=== PATIENT | female | born 1960 | race Caucasian/White ===

== ENCOUNTER 2024-04-15 08:55 | Inpatient (IN) | payer MEDICAID ==
[2024-04-15] MEDS: Sodium Chloride 0.9% 10 ML Syringe FLUSH PRN (09:30)
[2024-04-15 09:59] LABS: HEMATOCRIT 31.7 % (34.2-48.2); HEMOGLOBIN 9.9 g/dL (11.4-15.5); MEAN CORPUSCULAR HEMOGLOBIN 26.7 pg (23.9-33.9); MEAN CORPUSCULAR HGB CONC 31.3 g/dL (31.9-34.8); MEAN CORPUSCULAR VOLUME 85.2 fL (76.7-100.5); MEAN PLATELET VOLUME 8.9 fL (7.1-12.4); PLATELET COUNT,PLT 214 x10(3)uL (151-488); RED BLOOD CELL COUNT 3.72 x10(6)uL (3.60-5.20); RED CELL DISTRIBUTION WIDTH 15.1 % (12.3-16.5); WHITE BLOOD CELL COUNT,WBC 10.5 x10-3/uL (3.0-10.3)
[2024-04-15 10:01] LABS: BLOOD UREA NITROGEN,BUN 8 mg/dL (7-18); BUN/CREATININE RATIO 8.9 (9-20); CALCIUM 9.3 mg/dL (8.6-10.2); CARBON DIOXIDE,CO2 30 mmol/L (21-32); CHLORIDE,CL 104 mmol/L (100-110); CREATININE 0.9 mg/dL (0.55-1.02); ESTIMATED GFR 72 mL/min (>60); GLUCOSE RANDOM 160 mg/dL (80-116); SODIUM,NA 143 mmol/L (135-145)
[2024-04-15 10:04] LABS: BASE EXCESS VENOUS,POC -1 mmol/L (-2 - 3+); PCO2 VENOUS,POC 45 mmHg (41-51); PH VENOUS,POC 7.36 pH Units (7.32-7.43)
[2024-04-15 10:07] LABS: A/G RATIO 0.8; ALANINE AMINOTRANSFERASE,ALT 17 U/L (12-36); ALKALINE PHOSPHATASE 110 IU/L (56-112); ASPARTATE AMNIOTRANSFERASE,AST 13 IU/L (5-25); BILIRUBIN TOTAL 0.2 mg/dL (0.1-1.3); MAGNESIUM 1.9 mg/dL (1.8-2.5); PROTEIN TOTAL,TP 6.7 g/dL (6.0-8.0)
[2024-04-15 10:14] LABS: TROPONIN I 56.2 pg/mL (4.0-60.3)
[2024-04-15 10:18] LABS: C-REACTIVE PROTEIN < 0.50 mg/dL (<0.50); PRO B-TYPE NATRIUR PEPT,BNPPRO 1361 pg/mL (<=125)
[2024-04-15 10:30] LABS: EOSINOPHILS PERCENT MAN 3 % (0-5); LYMPHOCYTES PERCENT MAN 11 % (13-37); MONOCYTES PERCENT MAN 3 % (4-12); SEG NEUTROPHILS PERCENT MAN 83 % (46-82)
[2024-04-15] MEDS: Albuterol/Ipratropium 3.0-0.5 MG/3 ML Neb Soln NEB ONE (10:36)
[2024-04-15] MEDS: Sodium Chloride 0.9% 500 ML IV ONE ×3 (10:44→19:48)
[2024-04-15] MEDS: Iopamidol 755 Mg/ML 100 ML Bottle IV SCH (12:34)
[2024-04-15 13:01] LABS: BILIRUBIN,URINE NEGATIVE (NEGATIVE); GLUCOSE,URINE 50 mg/dL (NORMAL); KETONES,URINE NEGATIVE (NEGATIVE); LEUKOCYTE ESTERASE,URINE NEGATIVE (NEGATIVE); NITRITE,URINE NEGATIVE (NEGATIVE); OCCULT BLOOD,URINE NEGATIVE (NEGATIVE); PROTEIN,URINE 100 mg/dL (NEGATIVE); UROBILINOGEN,URINE NORMAL (NEGATIVE)
[2024-04-15 13:07] LABS: APPEARANCE,URINE CLEAR (CLEAR); BACTERIA,URINE MODERATE (NS); COLOR,URINE YELLOW (YELLOW); SQUAMOUS EPITHELIAL CELLS,UR FEW (NS,R,O); WBC,URINE 0-5 (0-5)
[2024-04-15] MEDS ORDERED: Acetaminophen 650 MG Supp RECTAL PRN (17:18)
[2024-04-15] MEDS ORDERED: Albuterol 6.7 GM Inhaler INH PRN (17:26)
[2024-04-15] MEDS: Albuterol/Ipratropium 3.0-0.5 MG/3 ML Neb Soln NEB SCH (18:10)
[2024-04-15] MEDS: cefTRIAXone 1 GM Vial IVPUSH SCH (18:25)
[2024-04-15] MEDS: Azithromycin 500 MG in Sodium Chloride 0.9% 250 ML IV SCH (18:31)
[2024-04-15 18:39] LABS: LACTIC ACID 2.8 mmol/L (0.4-2.0)
[2024-04-15] MEDS: Apixaban 5 MG Tab PO SCH (20:29)
[2024-04-15] MEDS: Pramipexole 0.25 MG Tab PO SCH (20:29)
[2024-04-15] MEDS: Furosemide 20 MG/2 ML VIAL IVPUSH SCH (20:31)
[2024-04-15] MEDS: methylPREDNISolone Sodium Succinate 40 MG/1 ML SDV IVPUSH SCH (20:38)
[2024-04-15] MEDS: traZODone 50 MG Tab PO PRN (21:45)
[2024-04-16] MEDS: Pantoprazole 40 MG Tab.CR PO SCH (06:42)
[2024-04-16 06:52] LABS: HEMATOCRIT 29.4 % (34.2-48.2); HEMOGLOBIN 9.4 g/dL (11.4-15.5); MEAN CORPUSCULAR HGB CONC 31.9 g/dL (31.9-34.8); MEAN CORPUSCULAR VOLUME 84.7 fL (76.7-100.5); MEAN PLATELET VOLUME 8.7 fL (7.1-12.4); PLATELET COUNT,PLT 200 x10(3)uL (151-488); RED BLOOD CELL COUNT 3.47 x10(6)uL (3.60-5.20); RED CELL DISTRIBUTION WIDTH 14.7 % (12.3-16.5); WHITE BLOOD CELL COUNT,WBC 6.8 x10-3/uL (3.0-10.3)
[2024-04-16 07:05] LABS: A/G RATIO 0.8; ALANINE AMINOTRANSFERASE,ALT 19 U/L (12-36); ALBUMIN 2.9 g/dL (3.2-4.6); ALKALINE PHOSPHATASE 98 IU/L (56-112); ASPARTATE AMNIOTRANSFERASE,AST 17 IU/L (5-25); BILIRUBIN TOTAL 0.2 mg/dL (0.1-1.3); BLOOD UREA NITROGEN,BUN 9 mg/dL (7-18); CALCIUM 9.2 mg/dL (8.6-10.2); CARBON DIOXIDE,CO2 30 mmol/L (21-32); CHLORIDE,CL 103 mmol/L (100-110); CREATININE 0.9 mg/dL (0.55-1.02); EST CRCL DRUG DOSING (CG) 55.97 mL/min; ESTIMATED GFR 72 mL/min (>60); GLUCOSE RANDOM 150 mg/dL (80-116); MAGNESIUM 1.8 mg/dL (1.8-2.5); POTASSIUM,K 4.2 mmol/L (3.5-5.3); PROTEIN TOTAL,TP 6.4 g/dL (6.0-8.0); SODIUM,NA 140 mmol/L (135-145)
[2024-04-16 07:11] LABS: BAND PERCENT MAN 4 % (0-6); LYMPHOCYTES PERCENT MAN 11 % (13-37); MONOCYTES PERCENT MAN 4 % (4-12); SEG NEUTROPHILS PERCENT MAN 81 % (46-82)
[2024-04-16] MEDS ORDERED: PRAMIPEXOLE DI HCL 1.5 MG PO SCH (09:00)
[2024-04-16] MEDS: Acetaminophen 325 MG Tab PO PRN (09:35)
[2024-04-16] MEDS: atorvaSTATin 20 MG Tab PO SCH (09:36)
[2024-04-16] MEDS: OLANZapine 5 MG Tab PO SCH (09:36)
[2024-04-16] MEDS: Carvedilol 6.25 MG Tab PO SCH (09:36)
[2024-04-16] MEDS: FLUoxetine 20 MG Cap PO SCH (09:36)
[2024-04-16] MEDS: traZODone 50 MG Tab PO ONE (16:59)
[2024-04-16] MEDS: Pramipexole 0.25 MG Tab PO SCH (17:21)
[2024-04-17 06:59] LABS: BASOPHILS PERCENT AUTO 0.1 % (0.2-1.5); HEMATOCRIT 27.2 % (34.2-48.2); HEMOGLOBIN 8.8 g/dL (11.4-15.5); LYMPHOCYTES PERCENT AUTO 13.5 % (18.4-52.1); MEAN CORPUSCULAR HEMOGLOBIN 27.1 pg (23.9-33.9); MEAN CORPUSCULAR HGB CONC 32.2 g/dL (31.9-34.8); MEAN CORPUSCULAR VOLUME 83.9 fL (76.7-100.5); MEAN PLATELET VOLUME 9.2 fL (7.1-12.4); MONOCYTES ABSOLUTE AUTO 0.2 x10-3/uL (0.3-1.0); MONOCYTES PERCENT AUTO 3.1 % (4.4-15.7); NEUTROPHILS ABSOLUTE AUTO 6.1 x10-3/uL (1.5-6.3); NEUTROPHILS PERCENT AUTO 83.3 % (30.8-76.2); PLATELET COUNT,PLT 191 x10(3)uL (151-488); RED BLOOD CELL COUNT 3.24 x10(6)uL (3.60-5.20); RED CELL DISTRIBUTION WIDTH 14.9 % (12.3-16.5); WHITE BLOOD CELL COUNT,WBC 7.3 x10-3/uL (3.0-10.3)
[2024-04-17 07:05] LABS: BLOOD UREA NITROGEN,BUN 14 mg/dL (7-18); BUN/CREATININE RATIO 17.5 (9-20); CALCIUM 9.5 mg/dL (8.6-10.2); CARBON DIOXIDE,CO2 32 mmol/L (21-32); CHLORIDE,CL 102 mmol/L (100-110); CREATININE 0.8 mg/dL (0.55-1.02); EST CRCL DRUG DOSING (CG) 62.96 mL/min; ESTIMATED GFR 83 mL/min (>60); GLUCOSE RANDOM 139 mg/dL (80-116); POTASSIUM,K 4.9 mmol/L (3.5-5.3); SODIUM,NA 138 mmol/L (135-145)
[2024-04-17] MEDS: Furosemide 20 MG/2 ML VIAL IVPUSH SCH (09:23)
[2024-04-17] MEDS: methylPREDNISolone Sodium Succinate 40 MG/1 ML SDV IVPUSH SCH (09:38)
[2024-04-17] MEDS: cefTRIAXone 1 GM in Sodium Chloride 0.9% 50 ML IV SCH (11:00)
[2024-04-17] MEDS: Pramipexole 0.25 MG Tab PO SCH (20:02)
[2024-04-17] MEDS: Carvedilol 6.25 MG Tab PO SCH (20:03)
[2024-04-17] MEDS: traZODone 50 MG Tab PO SCH (20:03)
[2024-04-18 06:40] LABS: BASOPHILS PERCENT AUTO 0.2 % (0.2-1.5); HEMATOCRIT 29.8 % (34.2-48.2); HEMOGLOBIN 9.6 g/dL (11.4-15.5); LYMPHOCYTES ABSOLUTE AUTO 1.3 x10-3/uL (1.0-4.4); LYMPHOCYTES PERCENT AUTO 16.4 % (18.4-52.1); MEAN CORPUSCULAR HEMOGLOBIN 26.8 pg (23.9-33.9); MEAN CORPUSCULAR HGB CONC 32.3 g/dL (31.9-34.8); MEAN PLATELET VOLUME 8.8 fL (7.1-12.4); MONOCYTES ABSOLUTE AUTO 0.3 x10-3/uL (0.3-1.0); NEUTROPHILS ABSOLUTE AUTO 6.2 x10-3/uL (1.5-6.3); NEUTROPHILS PERCENT AUTO 79.4 % (30.8-76.2); PLATELET COUNT,PLT 216 x10(3)uL (151-488); RED BLOOD CELL COUNT 3.59 x10(6)uL (3.60-5.20); RED CELL DISTRIBUTION WIDTH 14.7 % (12.3-16.5); WHITE BLOOD CELL COUNT,WBC 7.8 x10-3/uL (3.0-10.3)
[2024-04-18 06:46] LABS: BLOOD UREA NITROGEN,BUN 23 mg/dL (7-18); BUN/CREATININE RATIO 25.6 (9-20); CALCIUM 9.8 mg/dL (8.6-10.2); CARBON DIOXIDE,CO2 34 mmol/L (21-32); CHLORIDE,CL 103 mmol/L (100-110); CREATININE 0.9 mg/dL (0.55-1.02); EST CRCL DRUG DOSING (CG) 55.97 mL/min; ESTIMATED GFR 72 mL/min (>60); GLUCOSE RANDOM 119 mg/dL (80-116); SODIUM,NA 141 mmol/L (135-145)
[2024-04-18 16:08] VITALS: BP 125/75; PULSE 84
== END 2024-04-18 16:49 | disposition home or self-care (01) | DRG 193 ==
LOC: EDBD → FB.ED 08:55 → FB.MS 15:16
PROVIDERS: ADMIT Internal Medicine; ATTEND Internal Medicine
DX: J18.9 Pneumonia, unspecified organism (principal); I50.33 Acute on chronic diastolic (congestive) heart failure; J96.01 Acute respiratory failure with hypoxia; J44.0 Chronic obstructive pulmonary disease with (acute) lower respiratory infection; J44.1 Chronic obstructive pulmonary disease with (acute) exacerbation; E87.20 Acidosis, unspecified; I25.10 Atherosclerotic heart disease of native coronary artery without angina pectoris; E78.00 Pure hypercholesterolemia, unspecified; F31.9 Bipolar disorder, unspecified; F17.210 Nicotine dependence, cigarettes, uncomplicated; D64.9 Anemia, unspecified; K21.9 Gastro-esophageal reflux disease without esophagitis; I48.91 Unspecified atrial fibrillation; G47.33 Obstructive sleep apnea (adult) (pediatric); G25.81 Restless legs syndrome; J43.9 Emphysema, unspecified; F41.0 Panic disorder [episodic paroxysmal anxiety]; Z79.01 Long term (current) use of anticoagulants; Z79.899 Other long term (current) drug therapy; Z98.890 Other specified postprocedural states; Z86.73 Personal history of transient ischemic attack (TIA), and cerebral infarction without residual deficits
CPT/HCPCS: 36415; 71045; 71275; 80048; 80053; 81001; 83605; 83735; 83880; 84484; 85025; 85379; 86140; 87040; 87070; 87077; 87205; 93005; 93010; 93306; 94150; 94640; 96360; 97161-GP; 99222; 99232; 99238; 99239; 99285; 99285-25; A9270-GY; J0456; J0696; J1940; J2919; J3490; J7040; J7050; J7620; Q9967; U0002

== ENCOUNTER 2024-04-24 10:13 | Emergency (ER) | payer MEDICAID ==
[2024-04-24] MEDS ORDERED: Sodium Chloride 0.9% 10 ML Syringe FLUSH PRN (10:38)
[2024-04-24 10:59] LABS: BASE EXCESS VENOUS,POC 4 mmol/L (-2 - 3+); PCO2 VENOUS,POC 37 mmHg (41-51); PH VENOUS,POC 7.48 pH Units (7.32-7.43)
[2024-04-24 11:03] LABS: BASOPHILS ABSOLUTE AUTO 0.1 x10-3/uL (0.0-0.1); BASOPHILS PERCENT AUTO 0.8 % (0.2-1.5); EOSINOPHILS ABSOLUTE AUTO 0.2 x10-3/uL (0.0-0.8); EOSINOPHILS PERCENT AUTO 1.9 % (0.6-8.1); HEMATOCRIT 35.5 % (34.2-48.2); HEMOGLOBIN 11.5 g/dL (11.4-15.5); LYMPHOCYTES ABSOLUTE AUTO 2.6 x10-3/uL (1.0-4.4); LYMPHOCYTES PERCENT AUTO 28.1 % (18.4-52.1); MEAN CORPUSCULAR HEMOGLOBIN 26.3 pg (23.9-33.9); MEAN CORPUSCULAR HGB CONC 32.3 g/dL (31.9-34.8); MEAN CORPUSCULAR VOLUME 81.4 fL (76.7-100.5); MEAN PLATELET VOLUME 8.9 fL (7.1-12.4); MONOCYTES ABSOLUTE AUTO 0.5 x10-3/uL (0.3-1.0); MONOCYTES PERCENT AUTO 5.5 % (4.4-15.7); NEUTROPHILS ABSOLUTE AUTO 5.8 x10-3/uL (1.5-6.3); NEUTROPHILS PERCENT AUTO 63.7 % (30.8-76.2); PLATELET COUNT,PLT 298 x10(3)uL (151-488); RED BLOOD CELL COUNT 4.36 x10(6)uL (3.60-5.20); WHITE BLOOD CELL COUNT,WBC 9.2 x10-3/uL (3.0-10.3)
[2024-04-24 11:08] LABS: INR 0.9 (1.00-1.24); PROTHROMBIN TIME 9.5 sec (9.0-11.1)
[2024-04-24 11:10] LABS: BLOOD UREA NITROGEN,BUN 13 mg/dL (7-18); BUN/CREATININE RATIO 14.4 (9-20); CALCIUM 9.6 mg/dL (8.6-10.2); CARBON DIOXIDE,CO2 30 mmol/L (21-32); CHLORIDE,CL 99 mmol/L (100-110); CREATININE 0.9 mg/dL (0.55-1.02); EST CRCL DRUG DOSING (CG) 55.97 mL/min; ESTIMATED GFR 72 mL/min (>60); GLUCOSE RANDOM 124 mg/dL (80-116); POTASSIUM,K 4.7 mmol/L (3.5-5.3); PTT,PARTIAL THROMBOPLSTIN TIME 22.9 SECONDS (24.4-33.2); SODIUM,NA 136 mmol/L (135-145)
[2024-04-24 11:16] LABS: A/G RATIO 0.8; ALANINE AMINOTRANSFERASE,ALT 21 U/L (12-36); ALBUMIN 3.2 g/dL (3.2-4.6); ALKALINE PHOSPHATASE 106 IU/L (56-112); ASPARTATE AMNIOTRANSFERASE,AST 14 IU/L (5-25); BILIRUBIN TOTAL 0.5 mg/dL (0.1-1.3)
[2024-04-24 11:22] LABS: TROPONIN I 38.9 pg/mL (4.0-60.3)
[2024-04-24] MEDS: Albuterol/Ipratropium 3.0-0.5 MG/3 ML Neb Soln NEB ONE (11:29)
[2024-04-24] MEDS: methylPREDNISolone Sodium Succinate 125 MG/2 ML SDV IVPUSH ONE (11:30)
[2024-04-24] MEDS: LORazepam 1 MG Tab PO ONE (12:01)
== END 2024-04-24 13:11 | disposition home or self-care (01) ==
LOC: FB.ED 10:13
DX: J44.1 Chronic obstructive pulmonary disease with (acute) exacerbation (principal); F41.1 Generalized anxiety disorder; I25.10 Atherosclerotic heart disease of native coronary artery without angina pectoris; E78.00 Pure hypercholesterolemia, unspecified; I11.0 Hypertensive heart disease with heart failure; I50.9 Heart failure, unspecified; J44.9 Chronic obstructive pulmonary disease, unspecified; K21.9 Gastro-esophageal reflux disease without esophagitis; E66.9 Obesity, unspecified; Z68.41 Body mass index [BMI] 40.0-44.9, adult; Z79.899 Other long term (current) drug therapy
CPT/HCPCS: 36415; 71045; 80053; 83880; 84484; 85025; 85610; 85730; 87635; 93005; 96374; 99285; A9270; J2919; J7620; U0002

== ENCOUNTER 2024-04-27 21:02 | Emergency (ER) | payer MEDICAID ==
[2024-04-27] MEDS: Albuterol/Ipratropium 3.0-0.5 MG/3 ML Neb Soln NEB ONE (21:34)
[2024-04-27] MEDS: ALPRAZolam 0.5 MG Tab PO ONE (21:35)
[2024-04-27 21:46] LABS: BASOPHILS ABSOLUTE AUTO 0.1 x10-3/uL (0.0-0.1); BASOPHILS PERCENT AUTO 1.1 % (0.2-1.5); EOSINOPHILS ABSOLUTE AUTO 0.1 x10-3/uL (0.0-0.8); EOSINOPHILS PERCENT AUTO 1.2 % (0.6-8.1); HEMATOCRIT 36.2 % (34.2-48.2); HEMOGLOBIN 11.7 g/dL (11.4-15.5); LYMPHOCYTES ABSOLUTE AUTO 3.2 x10-3/uL (1.0-4.4); LYMPHOCYTES PERCENT AUTO 29.8 % (18.4-52.1); MEAN CORPUSCULAR HEMOGLOBIN 26.5 pg (23.9-33.9); MEAN CORPUSCULAR HGB CONC 32.3 g/dL (31.9-34.8); MEAN CORPUSCULAR VOLUME 82.2 fL (76.7-100.5); MEAN PLATELET VOLUME 8.9 fL (7.1-12.4); MONOCYTES ABSOLUTE AUTO 0.5 x10-3/uL (0.3-1.0); MONOCYTES PERCENT AUTO 4.6 % (4.4-15.7); NEUTROPHILS ABSOLUTE AUTO 6.8 x10-3/uL (1.5-6.3); NEUTROPHILS PERCENT AUTO 63.3 % (30.8-76.2); PLATELET COUNT,PLT 278 x10(3)uL (151-488); RED BLOOD CELL COUNT 4.41 x10(6)uL (3.60-5.20); RED CELL DISTRIBUTION WIDTH 15.4 % (12.3-16.5); WHITE BLOOD CELL COUNT,WBC 10.7 x10-3/uL (3.0-10.3)
[2024-04-27 21:52] LABS: BLOOD UREA NITROGEN,BUN 9 mg/dL (7-18); CALCIUM 9.5 mg/dL (8.6-10.2); CARBON DIOXIDE,CO2 29 mmol/L (21-32); CHLORIDE,CL 101 mmol/L (100-110); EST CRCL DRUG DOSING (CG) 50.37 mL/min; ESTIMATED GFR 64 mL/min (>60); GLUCOSE RANDOM 128 mg/dL (80-116); POTASSIUM,K 3.8 mmol/L (3.5-5.3); SODIUM,NA 139 mmol/L (135-145)
[2024-04-27 22:06] LABS: TROPONIN I 44.4 pg/mL (4.0-60.3)
== END 2024-04-27 23:30 | disposition home or self-care (01) ==
LOC: FB.ED 21:02
DX: F41.1 Generalized anxiety disorder (principal); I11.0 Hypertensive heart disease with heart failure; I50.9 Heart failure, unspecified; J44.9 Chronic obstructive pulmonary disease, unspecified; E66.9 Obesity, unspecified; Z68.36 Body mass index [BMI] 36.0-36.9, adult
CPT/HCPCS: 36415; 71045; 80048; 83880; 84484; 85025; 93005; 94640; 99285; A9270-GY; J7620